=== PATIENT | female | born 1985 | race Caucasian/White ===

== ENCOUNTER 2021-06-17 09:23 | Emergency (ER) | payer SELFPAY ==
[2021-06-17 10:38] LABS: BASOPHIL 0.2 % (0-2); EOSINOPHIL 0 % (0-5); HGB 14.5 g/dl (12.5-16.0); LYMPHOCYTE 18.4 % (15-48); MCV 81.9 fL (78.0-100.0); MONOCYTE 13.5 % (0-12); MPV 9.7 fL (6.0-9.5); NEUTROPHIL 67.7 % (41-80); NRBC 0; PLT 228 K/uL (150-400); RBC 5.37 M/uL (4.20-5.40); RDW 13.7 % (11.5-14.0); WBC 4.7 K/uL (4.0-10.5)
[2021-06-17 10:39] LABS: BILIRUBIN NEGATIVE (NEGATIVE); BLOOD NEGATIVE Ery/uL (NEGATIVE); CLARITY CLEAR (CLEAR); COLOR YELLOW (YELLOW); GLUCOSE (U) NORMAL (NORMAL); LEUKOCYTES 1+ Leu/uL (NEGATIVE); NITRITE NEGATIVE (NEGATIVE); PROTEIN NEGATIVE (NEGATIVE); SPECIFIC GRAVITY 1.025 (1.001-1.030); UROBILINOGEN 0.2 mg/dL (0.2-1.0); pH 5.5 (5.0-9.0)
[2021-06-17 10:51] LABS: BACTERIA TRACE; URINARY RBC RARE; URINARY WBC RARE
[2021-06-17 10:52] LABS: INR 0.97 (0.9-1.2); PROTHROMBIN TIME 12.3 SECONDS (11.8-13.4); PTT 26.8 SECONDS (24.4-34.7)
[2021-06-17 10:54] LABS: D-DIMER 0.59 ug/mLFEU (0.00-0.41)
[2021-06-17 11:06] LABS: PRO-BNP 19 pg/mL (<125)
[2021-06-17 11:16] LABS: ALBUMIN 3.8 g/dL (3.4-5.0); BILIRUBIN - TOTAL 0.4 mg/dL (0.2-1.0); BUN/CREAT RATIO (CALC) 10.1 RATIO; C-REACTIVE PROTEIN 0.8 mg/dL (<=0.90); CREATININE 0.99 mg/dL (0.51-0.95); GLOBULIN (CALCULATION) 4.2 g/dL; POTASSIUM 3.8 mmol/L (3.5-5.1)
[2021-06-17] MEDS ORDERED: VENTOLIN HFA18 GM INH (13:46)
[2021-06-17] MEDS ORDERED: NAPROXEN500 MG PO (13:46)
[2021-06-17] MEDS ORDERED: ONDANSETRON ODT4 MG PO (13:46)
[2021-06-17] MEDS ORDERED: TESSALON PERLE100 M1 PO (13:46)
[2021-06-17] MEDS ORDERED: MEDROL 4MG DOSEP4 MG PO (13:46)
== END 2021-06-17 14:30 | disposition home or self-care (01) ==
LOC: FER 09:23
PROVIDERS: Emergency Medicine
DX: U07.1 COVID-19 (principal); Z23 Encounter for immunization
CPT/HCPCS: 36415; 70450; 71275; 80053; 81001; 82728; 83605; 83615; 83735; 83880; 84145; 84484; 84703; 85025; 85379; 85610; 85730; 86140; 87040; 93005; J7030; M0245; Q0245; Q9967; U0002